=== PATIENT | female | born 1950 | race Caucasian/White ===

== ENCOUNTER 2016-12-08 20:40 | Emergency (ER) | payer OTHER ==
[~2016-12-08] VITALS: Ht 162.6 cm; Wt 66.7 kg
[2016-12-08 20:40] VITALS: BP_SYST 119
[2016-12-08 22:16] LABS: BILIRUBIN,URINE NEGATIVE (NEGATIVE); BLOOD, URINE 1+ (NEGATIVE); CLARITY/URINE HAZY (CLEAR); COLOR,URINE YELLOW (YELLOW); GLUCOSE,URINE NEGATIVE (NEGATIVE); KETONES,URINE 2+ (NEGATIVE); LEUKOCYTE ESTERASE ,URINE 3+ (NEGATIVE); NITRITE, URINE NEGATIVE (NEGATIVE); PROTEIN URINE NEGATIVE (NEGATIVE); UROBILINOGEN,URINE 0.2 (0.2-1.0)
--- NOTE | 2016-12-08 22:17 | NUR ---
Patient to ER bed 7 to gown for evaluation. Side rails up. Report given to Quan MALCOLM.
[2016-12-08 22:18] LABS: BACTERIA,URINE FEW /HPF (None Seen); MUCUS,URINE None Seen /LPF (None Seen); RBC,URINE 0-3 /HPF (0-3); WBC,URINE 20-50 /HPF (0-3)
--- NOTE | 2016-12-08 22:27 | NUR ---
Pt c/o vaginal itching, spasm since Aug. Pt has been followed up by PMD and urgent care. She has completed 2 rounds of antibotics, and is taking hormone cream and moisture type cream. Sensation improves for short time and is recurrent.
--- NOTE | 2016-12-08 23:48 | NUR ---
Dr. Marin at bedside
[2016-12-09 01:21] VITALS: BP_SYST 119
--- NOTE | 2016-12-09 01:21 | NUR ---
Patient given written and verbal discharge instructions and verbalizes understanding. ER MD discussed with patient the results and treatment provided. Patient in stable condition. ID arm band removed. Rx of nitrofurantion and fluconazole given. Patient educated on pain management and to follow up with PMD x 2-3 days. Pain Scale 0/10 Opportunity for questions provided and answered.
== END 2016-12-09 01:21 | disposition home or self-care (01) ==
LOC: SED 20:40
DX: N39.0 Urinary tract infection, site not specified (principal); E05.90 Thyrotoxicosis, unspecified without thyrotoxic crisis or storm; Z86.19 Personal history of other infectious and parasitic diseases
CPT/HCPCS: 81000-TC; 87086; 87210-TC; 87491; 87591; 99284